=== PATIENT | male | born 1985 | race Caucasian/White ===

== ENCOUNTER 2022-10-24 09:24 | Emergency (ER) | payer OTHER ==
[~2022-10-24] VITALS: Ht 180.3 cm; Wt 81.2 kg
[~2022-10-24 09:24] MED LIST: DOLOGEN CAPLET1 EACH PO; MEDROL4 MG PO
[2022-10-24] MEDS ORDERED: LISINOPRIL10 MG PO (09:33)
[2022-10-24] MEDS ORDERED: CIPRO500 MG PO (15:00)
[2022-10-24] MEDS ORDERED: PEPCID AC20 MG PO (15:00)
[2022-10-24] MEDS ORDERED: METRONIDAZOLE500 MG PO (15:00)
[2022-10-24] MEDS ORDERED: INTESTINEX680 M1 PO (15:00)
== END 2022-10-24 21:40 | disposition home or self-care (01) ==
LOC: ER 09:24
DX: A04.9 Bacterial intestinal infection, unspecified (principal); I10 Essential (primary) hypertension; R19.7 Diarrhea, unspecified

== ENCOUNTER 2025-05-05 08:21 | Emergency (ER) | payer OTHER ==
[~2025-05-05] VITALS: Ht 177.8 cm; Wt 94.8 kg
[~2025-05-05 08:21] MED LIST changes: +CIPRO500 MG PO; +INTESTINEX680 M1 PO; +LISINOPRIL10 MG PO; +METRONIDAZOLE500 MG PO; +PEPCID AC20 MG PO
[2025-05-05] MEDS ORDERED: CLONAZEPAM 0.5 MG TABLET PO STA (09:44)
[2025-05-05] MEDS ORDERED: CLONIDINE HCL 0.1 MG TABLET PO STA (09:49)
[2025-05-05 10:45] LABS: COVID-19 AG NEGATIVE (NEGATIVE)
[2025-05-05 11:21] LABS: BASO % 1.0 % (0.1-1.2); EOS # 0.00 (0.04-0.54); EOS % 0.0 % (0.7-7.0); LYMPH # 0.96 (1.18-3.74); LYMPH % 19.0 % (19.3-53.1); MEAN PLATELET VOLUME 9.30 fl (9.4-12.4); MONO # 0.67 (0.24-0.82); NEUT # 3.35 (1.56-6.13); NEUT % 66.5 % (34.0-71.1); RED CELL DISTRIBUTION WIDTH 12.9 % (11.6-14.4)
[2025-05-05 11:30] LABS: MONO % 13.3 % (4.7-12.5)
[2025-05-05 12:12] LABS: BUN CREA RATIO 4.0 (7.0-25.0); CREATININE SERUM 0.7 mg/dL (0.70-1.30); GFR 125.55; GLUCOSE FASTING 109.0 mg/dL (65-100); OSMOLALITY SERUM 267.0 MOSM/KG (275-295)
== END 2025-05-05 14:34 | disposition home or self-care (01) ==
LOC: ER 08:21
DX: B34.9 Viral infection, unspecified (principal); F41.8 Other specified anxiety disorders; I10 Essential (primary) hypertension; Z20.822 Contact with and (suspected) exposure to COVID-19